=== PATIENT | female | born 1950 | race Caucasian/White ===

== ENCOUNTER → 2018-09-12 | Outpatient (CLI) | payer OTHER ==
[~2018-09-12] MED LIST: MULVITMIND PO; PHENY100ER PO; VENL75ER PO
== END | disposition home or self-care (01) ==
LOC: LAB SHORT 13:21 → LAB EV 13:21
DX: L72.3 Sebaceous cyst (principal)
CPT/HCPCS: 87070; 87075; 87205

== ENCOUNTER → 2022-02-17 | Outpatient (CLI) | payer OTHER | END | disposition home or self-care (01) | DX: R07.9 Chest pain, unspecified (principal) ==

== ENCOUNTER → 2024-10-01 | Outpatient (CLI) | payer OTHER | LOC: LAB SHORT 10:03 → LAB 10:03 | DX: N39.0 Urinary tract infection, site not specified (principal); R31.9 Hematuria, unspecified | CPT/HCPCS: 87086 ==